=== PATIENT | female | born 1985 | race Caucasian/White ===

== ENCOUNTER → 2016-04-03 | Outpatient (CLI) | payer OTHER | LOC: FIMAGING 10:12 | PROVIDERS: ATTEND Student in an Organized Health Care Education/Training Program | DX: O36.63X0 Maternal care for excessive fetal growth, third trimester, not applicable or unspecified (principal); Z82.79 Family history of other congenital malformations, deformations and chromosomal abnormalities; Z3A.30 30 weeks gestation of pregnancy ==